=== PATIENT | female | born 1990 | race American Indian/Alaskan Native ===

== ENCOUNTER 2016-04-30 17:18 | Outpatient (CLI) | payer MEDICAID ==
[2016-04-30 19:59] VITALS: BP 152/85
[2016-04-30 20:10] LABS: Hematocrit 26.9 % (30.3-42.9); Hemoglobin 8.2 gm/dl (10.1-14.3); Mean Corpuscular HGB Conc 30 % (30-34); Platelet Count 234 K/mm3 (140-440); Red Blood Count 3.88 M/mm3 (3.65-5.03); White Blood Count 11.5 K/mm3 (4.5-11.0)
[2016-04-30 20:21] LABS: Bacteria,Urine 1+ /HPF (Negative); Bilirubin,Urine NEG (Negative); Blood,Urine NEG (Negative); Ketones,Urine TR mg/dL (Negative); Leukocyte Esterase,Urine TR (Negative); Mucus,Urine FEW /HPF; Nitrite,Urine NEG (Negative); Urobilinogen,Urine < 2.0 mg/dL (<2.0)
[2016-04-30 20:32] LABS: Mean Corpuscular Volume 69 fl (79-97)
[2016-04-30 20:33] LABS: Mean Corpuscular Hemoglobin 21 pg (28-32)
[2016-04-30 20:34] LABS: Alanine Aminotransferase 5 units/L (7-56); Lactate Dehydrogenase 221 units/L (91-180); Uric Acid 4.2 mg/dL (3.5-7.6)
== END 2016-04-30 21:15 | disposition home or self-care (01) ==
LOC: TRG 17:18
PROVIDERS: ATTEND Obstetrics & Gynecology
DX: O47.9 False labor, unspecified (principal); Z3A.00 Weeks of gestation of pregnancy not specified
CPT/HCPCS: 36415; 81001; 82565; 83615; 84450; 84460; 84550; 85027; 96360

== ENCOUNTER 2016-05-06 06:16 | Inpatient (IN) | payer MEDICAID ==
[2016-05-06] MEDS ORDERED: LACTATED RINGERS 1,000 ML ONE (07:26)
[2016-05-06] MEDS ORDERED: PITOCin/NS 20 UNIT/1000ML DRIP 1,000 ML IV ONE (07:27)
--- NOTE | 2016-05-06 07:35 | History and Physical Report ---
History of Present Illness Date of examination: 05/06/16 (Admission exam) Date of admission: 05/06/16 06:46 Past History Past Surgical History: no surgical history [employer] INSPECTOR History: chlamydia, other (EAB 2016) Family/Genetic History: diabetes, hypertension, other (depression) Social history: no significant social history - Obstetrical History Expected Date of Delivery: 05/14/16 Actual Gestation: 38 Week(s) 6 Day(s) : 3 Para: 1 Hx # Term Pregnancies: 1 Number of Pregnancies: 0 Spontaneous Abortions: 0 Induced : 1 Number of Living Children: 1 #1 Gender: Male year: Birthweight: 3.487 kg Method of Delivery: Vaginal Gestational age at delivery: 39 Complications: none Medications and Allergies Allergies Allergy/AdvReac Type Severity Reaction Status Date / Time No Known Allergies Allergy Verified 04/30/16 19:34 Home Medications Medication Instructions Recorded Confirmed Last Taken Type Pnv95/Ferrous Fumarate/FA 1 each PO DAILY 04/30/16 04/30/16 04/23/16 09:00 History [Prenavite Tablet] 1 Review of Systems All systems: negative - Vital Signs Vital signs: Vital Signs Pulse Pulse Ox 69 97 05/06/16 06:53 05/06/16 06:53 Temp Pulse Resp BP Pulse Ox 98.1 F 58 L 18 159/93 100 05/06/16 07:30 05/06/16 07:30 05/06/16 07:30 05/06/16 07:30 05/06/16 07:28 - Physical Exam Breasts: Positive: normal Cardiovascular: Regular rate Lungs: Positive: Clear to auscultation Abdomen: Positive: normal appearance Genitourinary (Female): Positive: other (VE deferred until pt is comfortable with epidural) Extremities: Deep Tendon Reflex Grade: Normal +2 - Obstetrical FHR: auscultation normal Cervical Dilatation: 5.5 Uterine Contraction Pattern: Regular Uterine Contraction Intensity: Strong/Firm Results All other labs normal. Assessment and Plan A. 25 y/o @ 38.6 wk EGA admitted in active labor Epidural requested GBS Neg P Routine admission, labs, VS IV sedation while awaiting epidural Anticipate
[2016-05-06] MEDS ORDERED: PITOCin/NS 20 UNIT/1000ML DRIP 1,000 ML IV SCH (08:00)
[2016-05-06] MEDS ORDERED: PITOCin/NS 30 UNIT/500ML 500 ML IV SCH (08:00)
[2016-05-06 08:23] LABS: Mean Corpuscular HGB Conc 29 % (30-34); Mean Corpuscular Volume 72 fl (79-97); Platelet Count 246 K/mm3 (140-440); Red Blood Count 4.42 M/mm3 (3.65-5.03); Red Cell Distribution Width 17.6 % (13.2-15.2); White Blood Count 14.7 K/mm3 (4.5-11.0)
[2016-05-06 08:31] LABS: Hematocrit 31.7 % (30.3-42.9); Hemoglobin 9.3 gm/dl (10.1-14.3); Mean Corpuscular Hemoglobin 21 pg (28-32)
[2016-05-06] MEDS ORDERED: ePHEDrine SULFATE ONE (08:37)
--- NOTE | 2016-05-06 08:38 | Anesthesia Consultation ---
Anesthesia Consult and Med Hx Date of service: 05/06/16 - Airway Anesthetic Teeth Evaluation: Good ROM Head & Neck: Adequate Mental/Hyoid Distance: Adequate Mallampati Class: Class II Intubation Access Assessment: Probably Good - Pre-Operative Health Status ASA Pre-Surgery Classification: ASA2 Proposed Anesthetic Plan: Epidural, Spinal - Pulmonary Hx Asthma: No COPD: No Hx Pneumonia: No - Cardiovascular System Hx Hypertension: No - Central Nervous System Hx Seizures: No Hx Psychiatric Problems: No - Endocrine Hx Renal Disease: No Hx End Stage Renal Disease: No Hx Hypothyroidism: No Hx Hyperthyroidism: No - Hematic Hx Anemia: No Hx Sickle Cell Disease: No - Other Systems Hx Alcohol Use: No
[2016-05-06] MEDS ORDERED: LACTATED RINGERS 1,000 ML IV SCH (09:00)
[2016-05-06] MEDS ORDERED: BRETHINE SUB-Q PRN (09:00)
[2016-05-06] MEDS ORDERED: BRETHINE IVP PRN (09:00)
[2016-05-06] MEDS ORDERED: SUBLIMAZE IV PRN (09:00)
[2016-05-06] MEDS ORDERED: ePHEDrine SULFATE IV PRN (09:00)
[2016-05-06] MEDS ORDERED: NARCAN 2 MG/2 ML IV PRN (09:00)
[2016-05-06] MEDS ORDERED: MINERAL OIL PO PRN (09:00)
[2016-05-06] MEDS ORDERED: ZOFRAN IV PRN (09:00)
[2016-05-06] MEDS ORDERED: fentaNYL-BUPIV 2 MCG/ML-0.125% 100 ML EPIDURAL SCH (09:00)
[2016-05-06] MEDS ORDERED: DERMOPLAST TP PRN (10:07)
--- NOTE | 2016-05-06 10:13 | Procedure Note ---
OB Delivery Note - Delivery Date of Delivery: 05/06/16 (09:56) Surgeon: RAMO NICHOLS (ASTRID) Estimated blood loss: 200cc - Vaginal Delivery presentation: vertex Delivery position: OA Intrapartum events: none Delivery induction: none Delivery augmentation: rupture of membranes (09:54) Delivery monitor: external FHT, external uterine Route of delivery: Delivery placenta: spontaneous (10:00; Appears intact) Delivery cord: 3 umbilical vessels Episiotomy: none Delivery laceration: none Anesthesia: epidural Delivery comments: viable female , TATYANA position, under epidural anesthesia, over intact perineum at 09:56. skin to skin on [id number] abdomen. Strong lusty cry. Cord clamped then cut by FOB at 3 min of age. Spontaneous richard delivery of placenta at 10:00. Appears intact. 3VC. FF@U-3. No tears or lacerations. and mother doing well. Left in stable condition in L&D. - A at 1 minute: 9 at 5 minutes: 9 Gender: Female (2637 grams, 5lbs 13 oz, 18 3/4")
[2016-05-06] MEDS ORDERED: NORCO 5/325 PO PRN (11:30)
[2016-05-06] MEDS ORDERED: MILK OF MAGNESIA PO PRN (11:30)
[2016-05-06] MEDS ORDERED: TUCKS PAD TP PRN (11:30)
[2016-05-06] MEDS ORDERED: DULCOLAX PR PRN (11:30)
[2016-05-06] MEDS ORDERED: PHENERGAN PO PRN (11:30)
[2016-05-06] MEDS ORDERED: BENADRYL PO PRN (11:30)
[2016-05-06] MEDS ORDERED: LANSINOH TP PRN (11:30)
[2016-05-06] MEDS ORDERED: TYLENOL PO PRN (11:30)
[2016-05-06] MEDS ORDERED: SODIUM CHLORIDE FLUSH SYRINGE 10 ML IV NR (11:30)
[2016-05-06] MEDS: MOTRIN PO SCH ×3 (13:00→20:13)
[2016-05-06 23:42] LABS: Hematocrit 25.2 % (30.3-42.9); Hemoglobin 7.8 gm/dl (10.1-14.3)
[2016-05-07] MEDS: MOTRIN PO SCH (06:21)
[2016-05-07] MEDS ORDERED: BOOSTRIX IM ONE (06:30)
[2016-05-07] MEDS ORDERED: INFED IM ONE (10:57)
--- NOTE | 2016-05-07 10:57 | Progress Note ---
Assessment and Plan A: PP Day #1 Asymptomatic Anemia Blood Pressures mildly elevated P: Follow routine orders D/C Home per patient request Discussed s/s of PIH; patient agrees to return to hospital immediately if s/s occur RTo in one week Subjective - Subjective Date of service: 05/07/16 Patient reports: appetite normal, voiding normally, pain well controlled, flatus , ambulating normally, other (Denies all s/s of PIH) [place]: doing well Objective - Vital Signs Latest vital signs: Vital Signs Temp Pulse Pulse Resp BP BP 05/07/16 08:34 98.6 F 51 L 18 144/89 05/07/16 00:00 98.0 F 62 20 143/80 05/06/16 20:13 18 05/06/16 15:57 98.5 F 58 L 20 152/86 05/06/16 13:00 98.1 F 65 20 132/84 05/06/16 11:35 98.6 F 54 L 18 160/75 05/06/16 11:17 56 L 150/74 05/06/16 11:16 59 L 175/91 Intake and Output 05/06/16 05/07/16 05/07/16 22:59 06:59 14:59 Intake Total 640 240 Output Total 2600 Balance -1960 240 Intake: Oral 640 240 Output: Urine 2600 Void 2600 Other: Total, Intake Amount 240 240 Total, Output Amount 900 # Voids Void 3 2 - Exam Breasts: Present: normal Cardiovascular: Present: Regular rate Lungs: Present: Clear to auscultation, Normal air movement Abdomen: Present: normal appearance, soft, normal bowel sounds Uterus: Present: normal, firm, fundal height below umbilicus Extremities: Present: normal - Labs Labs: Abnormal lab results 05/06/16 Range/Units 22:00 Hgb 7.8 L (10.1-14.3) gm/dl Hct 25.2 L D (30.3-42.9) %
--- NOTE | 2016-05-07 10:59 | Discharge Summary ---
Providers - Providers Date of Admission: 05/06/16 06:46 Date of discharge: 05/07/16 Attending physician: TIGIST RAPP MD Primary care physician: TIGIST RAPP MD Hospitalization Reason for admission: active labor Delivery: Episiotomy: none Laceration: none Other procedures: none complications: none Discharge diagnosis: IUP at term delivered [place] baby: female Condition at discharge: Good Disposition: DISCHARGED TO HOME OR SELFCARE Plan - Provider Discharge Summary Activity: routine, no sex for 6 weeks, no heavy lifting 4 weeks, no strenuous exercise Diet: routine Instructions: routine Additional instructions: [] Smoking cessation referral if applicable(refer to patient education folder for contact #) [] Refer to [facility] Booklet Call your doctor immediately for: * Fever > 100.5 * Heavy vaginal bleeding ( >1 pad per hour) * Severe persistent headache * Shortness of breath * Reddened, hot, painful area to leg or breast * Drainage or odor from incision. * Keep incision clean and dry at all times and follow doctor's instructions regarding bathing/showering - Follow up plan Follow up: VIRGINIA WALLACE CNM [Advanced Practice Nurse] - 7 Days
--- NOTE | 2016-05-07 11:02 | Progress Note ---
Subjective Date of service: 05/07/16 Interval history: 1st day after normal vaginal delivery Patient is in the bed, comfortable. pain is well controlled with pain meds. Ambulated well. No residual neurological deficit. No anesthesia complications Objective - Constitutional Vitals: Vital Signs - 12hr 05/07/16 05/07/16 00:00 08:34 Temperature 98.0 F 98.6 F Pulse Rate [ 62 51 L From Monitor] Respiratory 20 18 Rate Blood Pressure 143/80 144/89 [Right Arm] - Labs CBC & Chem 7: 05/06/16 22:00 Labs: Abnormal lab results 05/06/16 Range/Units 22:00 Hgb 7.8 L (10.1-14.3) gm/dl Hct 25.2 L D (30.3-42.9) %
[2016-05-07 12:19] VITALS: BP 122/76
[2016-05-07] MEDS ORDERED: FEOSOL PO SCH (14:00)
== END 2016-05-07 13:16 | disposition home or self-care (01) | DRG 775 ==
LOC: TRG 06:16 → LD 06:46 → OB 12:16
PROVIDERS: ADMIT Obstetrics & Gynecology; ATTEND Obstetrics & Gynecology
PROC: 3E0S3CZ (ICD-10-PCS; principal; 2016-05-06)
PROC: 10907ZC Drainage of Amniotic Fluid, Therapeutic from Products of Conception, Via Natural or Artificial Opening (ICD-10-PCS; principal; 2016-05-06)
PROC: 10E0XZZ Delivery of Products of Conception, External Approach (ICD-10-PCS; principal; 2016-05-06)
PROC: 00HU33Z Insertion of Infusion Device into Spinal Canal, Percutaneous Approach (ICD-10-PCS; principal; 2016-05-06)
DX: O90.81 Anemia of the puerperium (principal); D64.9 Anemia, unspecified; Z3A.38 38 weeks gestation of pregnancy; Z37.0 Single live birth; Z22.4 Carrier of infections with a predominantly sexual mode of transmission; Z86.19 Personal history of other infectious and parasitic diseases
CPT/HCPCS: 36415; 85014; 85018; 85027; 86850; 86900; 86901; 90471; 99211; G0463; J1750; J2590; J3010; J7120